=== PATIENT | male | born 1965 | race Caucasian/White ===

== ENCOUNTER → 2018-04-14 07:14 | Outpatient (CLI) | payer BC | END | disposition home or self-care (01) | LOC: D.MRI 07:14 | DX: M54.12 Radiculopathy, cervical region (principal) ==

== ENCOUNTER → 2018-09-04 09:02 | Outpatient (CLI) | payer BC ==
--- NOTE | 2018-09-08 14:01 | EC ---
PATIENT:NOLAN VILLALPANDO DATE OF SERVICE: 09/04/18 SEX: M MEDICAL RECORD: [id number] DATE OF : 65 LOCATION:D[facility] AGE OF PATIENT: 52 ADMISSION DATE: 09/04/18 REFERRING PHYSICIAN: INTERPRETING PHYSICIAN: LUCINA CUNNINGHAM MD ECHOCARDIOGRAM REPORT ECHO CHARGES 4 ECHO COMPLETE Date: 09/04/18 CLINICAL DIAGNOSIS: CARDIOMYOPATHY HX OF CAD ECHOCARDIOGRAPHIC MEASUREMENTS (adult normal given) AC root (d.<3.7cm) 4.1 cm LV Septum d (<1.2 cm> 1.2 cm Valve Excursion 1.6 cm LV Septum (systole) 1.4 cm Left Atria (s.<4.0cm> 4.1 cm LVPW d(<1.2cm) 1.5 cm RV (d.<2.3cm) 3.6 cm LVPW (sytole) 1.7 cm LV diastole(<5.6CM) 5.6 cm MV E-F(>70mm/sec) cm LV systole 4.2 cm LVOT Diameter 1.9 cm MV exc.(>10mm) 2.6 cm Est.ejection fraction (50-75%) % DOPPLER: LVIT cm/sec A 54.0 cm/sec E 44.0 cm/sec LA cm/sec RVSP 20 mmHg LVOT 88 cm/sec AOP1/2T m/s Asc. Ao 104 cm/sec RVOT 64 cm/sec RA cm/sec PA 81 cm/sec AV Gradient Peak 4.29 mmHg AV Mean 2.43 mmHg AV Area 2.7 cm MV Gradient Peak 1.39 mmHg MV Mean 0.54 mmHg MV Area cm COMMENTS: Performance Improvement Coordinator: 2 ITZEL GARCES Retail Clerk: 3 Dr. Ingram TAPE# PACS Pericardial Effusion N DATE OF SERVICE: 09/04/2018 Adequate 2-D echo, color flow and spectral Doppler, and M-Mode. No LVH. LV internal dimensions are normal. Wall motion is normal. EF is greater than or equal to 55%. Aortic valve is tricuspid. No evidence of stenosis by Doppler interrogation. Left atrium is normal. Mitral valve shows no prolapse. Trace MR. Right-sided chambers are normal. Trace TR. TRANSINT:[id number] Voice Confirmation ID: [id number] DOCUMENT ID: [id number] ECHOCARDIOGRAM REPORT [id number] NOLAN VILLALPANDO,LUCINA Garcia MD at 1401 CC: [id number] DICTATION DATE: 09/05/18 1237 PARKING ENFORCER: 09/05/18 1426 DEP CLI 09/04/18 [place] [id number] [place] [id number]
== END | disposition home or self-care (01) ==
LOC: D.HCCARDIO 09:00
PROVIDERS: ATTEND Internal Medicine Interventional Cardiology
DX: I42.9 Cardiomyopathy, unspecified (principal)

== ENCOUNTER → 2019-09-14 08:43 | Outpatient (CLI) | payer BC ==
--- NOTE | 2019-09-15 14:53 | EC ---
PATIENT:NOLAN VILLALPANDO DATE OF SERVICE: 09/14/19 SEX: M MEDICAL RECORD: [id number] DATE OF : 65 LOCATION:[facility] AGE OF PATIENT: 53 ADMISSION DATE: 09/14/19 REFERRING PHYSICIAN: INTERPRETING PHYSICIAN: LUCINA CUNNINGHAM MD ECHOCARDIOGRAM REPORT ECHO CHARGES 4 ECHO COMPLETE Date: 09/14/19 CLINICAL DIAGNOSIS: CARDIOMYOPATHY H/O RENAL CARCINOMA/ PRE-OP A-FIB ECHOCARDIOGRAPHIC MEASUREMENTS (adult normal given) AC root (d.<3.7cm) 3.5 cm LV Septum d (<1.2 cm> 1.2 cm Valve Excursion 2.2 cm LV Septum (systole) 2.1 cm Left Atria (s.<4.0cm> 3.5 cm LVPW d(<1.2cm) 1.2 cm RV (d.<2.3cm) 2.9 cm LVPW (sytole) 1.8 cm LV diastole(<5.6CM) 5.7 cm MV E-F(>70mm/sec) cm LV systole 3.5 cm LVOT Diameter 2.4 cm MV exc.(>10mm) cm Est.ejection fraction (50-75%) % DOPPLER: LVIT cm/sec A 51.0 cm/sec E 33.0 cm/sec LA cm/sec RVSP 27.3 mmHg LVOT 80.0 cm/sec AOP1/2T m/s Asc. Ao 102 cm/sec RVOT 63.0 cm/sec RA cm/sec PA 75.0 cm/sec AV Gradient Peak 4.1 mmHg AV Mean 2.0 mmHg AV Area 3.7 cm MV Gradient Peak 1.4 mmHg MV Mean 0.61 mmHg MV Area cm COMMENTS: OP - HC National Insurance Officer: 1 [employer] Principal Security Architect: 3 Dr. Ingram TAPE# PACS Pericardial Effusion N DATE OF SERVICE: Adequate 2D echo, color flow, spectral Doppler, and M-mode. Borderline LVH. LV internal dimensions are normal. LV wall motion appears mildly globally hypo with EF lower limits of normal, mildly reduced. Estimated EF 45% to 50%. Aortic valve sclerosis without stenosis by Doppler interrogation. Left atrium is normal at 3.5 cm. Mitral valve shows no prolapse. Mild MR. Right-sided chambers are grossly normal. Trace TR. ECHOCARDIOGRAM REPORT [id number] NOLAN VILLALPANDO TRANSINT:[id number] Voice Confirmation ID: [id number] DOCUMENT ID: [id number] LUCINA CUNNINGHAM MD at 1453 CC: [id number] DICTATION DATE: 09/15/19830 TRAFFIC INCIDENT MANAGEMENT MANAGER: 09/15/19 0917 DEP CLI 09/14/19 [place] [id number] [place] [id number]
== END | disposition home or self-care (01) ==
LOC: D.HCCECHO 08:43
PROVIDERS: ATTEND Internal Medicine Interventional Cardiology
DX: I25.10 Atherosclerotic heart disease of native coronary artery without angina pectoris (principal)

== ENCOUNTER → 2020-09-19 08:19 | Outpatient (CLI) | payer BC ==
--- NOTE | 2020-09-21 10:02 | EC ---
PATIENT:NOLAN VILLALPANDO DATE OF SERVICE: 09/19/20 SEX: M MEDICAL RECORD: [id number] DATE OF : 65 [facility]: 54 ADMISSION DATE: 09/19/20 REFERRING PHYSICIAN: INTERPRETING PHYSICIAN: LUCINA CUNNINGHAM MD ECHOCARDIOGRAM REPORT ECHO CHARGES 4 ECHO COMPLETE Date: 09/19/20 CLINICAL DIAGNOSIS: ASSESS EF HX OF CAD/CARDIOMYOPATHY ECHOCARDIOGRAPHIC MEASUREMENTS (adult normal given) AC root (d.<3.7cm) 3.8 cm LV Septum d (<1.2 cm> 1.2 cm Valve Excursion 1.7 cm LV Septum (systole) 1.5 cm Left Atria (s.<4.0cm> 3.5 cm LVPW d(<1.2cm) 1.4 cm RV (d.<2.3cm) 3.6 cm LVPW (sytole) 1.6 cm LV diastole(<5.6CM) 5.3 cm MV E-F(>70mm/sec) cm LV systole 3.5 cm LVOT Diameter 2.1 cm MV exc.(>10mm) 1.9 cm Est.ejection fraction (50-75%) % DOPPLER: LVIT cm/sec A 76.0 cm/sec E 85.0 cm/sec LA cm/sec RVSP 23 mmHg LVOT 101 cm/sec AOP1/2T m/s Asc. Ao 121 cm/sec RVOT 79 cm/sec RA cm/sec PA 109 cm/sec AV Gradient Peak 5.90 mmHg AV Mean 2.97 mmHg AV Area 2.7 cm MV Gradient Peak 2.75 mmHg MV Mean 1.31 mmHg MV Area cm COMMENTS: Service Developer: 2 ITZEL GARCES Manager Ent: 3 Dr. Ingram TAPE# PACS Pericardial Effusion N DATE OF SERVICE: Adequate 2D, color flow imaging, spectral Doppler, and M-mode. FINDINGS: Mild LVH. LV internal dimensions normal. Wall motion normal. EF greater than or equal to 55%. Aortic valve is tricuspid. No evidence of stenosis by Doppler interrogation. Left atrium normal at 3.5 cm. Mitral valve shows no prolapse. Trivial MR. Right-sided chambers are grossly normal. Trivial TR. ECHOCARDIOGRAM REPORT [id number] NOLAN VILLALPANDO TRANSINT:[id number] Voice Confirmation ID: [id number] DOCUMENT ID: [id number] LUCINA CUNNINGHAM MD at 1002 CC: [id number] DICTATION DATE: 09/20/20 1520 STRATEGIC PARTNER DEVELOPMENT MANAGER: 09/20/20 2326 DEP CLI 09/19/20 [place] [id number] [place] [id number]
== END | disposition home or self-care (01) ==
LOC: D.HCCECHO 08:19
PROVIDERS: ATTEND Internal Medicine Interventional Cardiology
DX: I25.10 Atherosclerotic heart disease of native coronary artery without angina pectoris (principal)